=== PATIENT | female | born 1965 | race Asian ===

== ENCOUNTER 2022-04-25 22:51 | Emergency (ER) | payer OTHER ==
[~2022-04-25] VITALS: Ht 149.9 cm; Wt 43.5 kg
[2022-04-25 22:55] VITALS: BP_SYST 138
--- NOTE | 2022-04-25 22:55 | NUR ---
Note undone in EDM - 04/25/22 at 2302 by [id number] Pt BIBA from home with c/o of dizziness x7 hours, BURR that subsided on arrival, and nausea. Denies pain at this time, and no signs of resp distress, even and unlabored resp. VSS.
[2022-04-25 23:22] LABS: BASOPHILS % (AUTO) 0.4 % (0.0-2.0); EOSINOPHILS % (AUTO) 0.7 % (0.0-4.0); HEMATOCRIT 37.3 % (36-48); LYMPHOCYTES % (AUTO) 15.9 % (20.5-51.5); MEAN CORPUSCULAR VOLUME 92 fL (79.0-98.0); MONOCYTES # (AUTO) 0.4 K/uL (0.0-1.0); MONOCYTES % (AUTO) 6.2 % (1.7-9.3); NEUTROPHILS # (AUTO) 4.9 K/uL (1.8-7.7); NEUTROPHILS % (AUTO) 76.8 % (40.0-70.0); PLATELET COUNT (AUTO) 232 K/uL (130-430); RED BLOOD CELL COUNT(AUTO) 4.07 MIL/uL (4.2-6.2); RED CELL DISTRIBUTION WIDTH 13.3 % (9.0-15.0); WHITE BLOOD COUNT (AUTO) 6.4 K/uL (4.8-10.8)
--- NOTE | 2022-04-25 23:50 | NUR ---
MD with patient for evaluation.
[2022-04-26] MEDS ORDERED: ONDANSETRON 4 MG ODT TAB PO ONE
[2022-04-26] MEDS ORDERED: MECLIZINE HCL 25 MG TABLET (ANITVERT) PO ONE
[2022-04-26 00:23] LABS: ALANINE AMINOTRANSFERASE 23 U/L (12-78); ALBUMIN 3.3 g/dL (3.4-4.8); ANION GAP 8 (5-15); ASPARTATE AMINOTRANSFERASE 25 U/L (10-37); CALCIUM 8.8 mg/dL (8.4-11.0); CHLORIDE 102 mmol/L (98-107); CREATININE 0.83 mg/dL (0.55-1.30); GLUCOSE 115 mg/dL (70-99); POTASSIUM 3.4 mmol/L (3.5-5.1); SODIUM SERUM 137 mmol/L (136-145); TOTAL BILIRUBIN 0.6 mg/dL (0.0-1.0); UREA NITROGEN, BLOOD 12 mg/dL (8-21)
[2022-04-26 00:34] LABS: PROTHROMBIN TIME 10.2 SECS (9.5-12.5)
[2022-04-26 00:39] LABS: GFR AFRICAN AMERICAN 90 mL/min (>90)
--- NOTE | 2022-04-26 00:50 | NUR ---
Pt report leg cramping and pain. made aware. No new orders at this time.
[2022-04-26] MEDS ORDERED: NACL 0.9% 1,000 ML IV ONE (01:15)
[2022-04-26] MEDS ORDERED: POTASSIUM CHLORIDE 20 MEQ TAB.PRT.SR PO ONE (01:15)
--- NOTE | 2022-04-26 01:28 | NUR ---
Pt moved to ED bed 01 via gurney. 22G initated in the LAC using sterile technique.
[2022-04-26] MEDS ORDERED: MAGNESIUM SULFATE 50 ML IV ONE (01:30)
[2022-04-26] MEDS ORDERED: POTASSIUM CHLORIDE 20 MEQ/PKT PACKET PO ONE (02:00)
--- NOTE | 2022-04-26 02:16 | NUR ---
COVID SWAB SENT TO LAB.
[2022-04-26 02:29] LABS: BILIRUBIN,URINE NEGATIVE (NEGATIVE); BLOOD, URINE NEGATIVE (NEGATIVE); CLARITY/URINE SL CLOUDY (CLEAR); COLOR,URINE YELLOW (YELLOW); GLUCOSE,URINE NEGATIVE (NEGATIVE); KETONES,URINE 1+ (NEGATIVE); LEUKOCYTE ESTERASE ,URINE NEGATIVE (NEGATIVE); NITRITE, URINE NEGATIVE (NEGATIVE); PROTEIN URINE TRACE (NEGATIVE); UROBILINOGEN,URINE 0.2 (0.2-1.0)
[2022-04-26 02:53] LABS: BACTERIA,URINE FEW /HPF (None Seen); RBC,URINE 0-3 /HPF (0-3); YEAST,URINE Few /HPF (None Seen)
[2022-04-26] MEDS ORDERED: LORazepam 2 MG/ML VIAL IVP ONE (03:00)
[2022-04-26 03:10] LABS: BARBITURATE, URINE NEGATIVE (NEG <=200); BENZODIAZEPINE, URINE NEGATIVE (NEG <=150); CANNABINOID, URINE NEGATIVE (NEG <=50); COCAINE, URINE NEGATIVE (NEG <=150); METHAMPHETAMINES SCREEN,URINE NEGATIVE (NEG <=500); URINE AMPHETAMINE NEGATIVE (NEG <=500); URINE METHADONE NEGATIVE (NEG <=200)
[2022-04-26 03:11] LABS: OPIATE, URINE NEGATIVE (NEG <=100); PHENCYCLIDINE SCREEN,URINE NEGATIVE (NEG <=25); UR TRICYCLIC ANTIDEPRESSANTS NEGATIVE (NEG <=300); URINE OXYCODONE SCREEN NEGATIVE (NEG <=100); URINE PROPOXYPHENE SCREEN NEGATIVE (NEG <=300)
[2022-04-26 04:20] VITALS: BP_SYST 96
== END 2022-04-26 04:25 | disposition short-term general hospital (02) ==
LOC: SED 22:51
DX: R42 Dizziness and giddiness (principal); R11.0 Nausea; Z79.899 Other long term (current) drug therapy; Z20.822 Contact with and (suspected) exposure to COVID-19
CPT/HCPCS: 99285; 87426; 80307; 80053; 83880; 85025; 85610; 85730; 84484; 36415; 83605; 81000; 96365; 70450; 71045; 96366; 96375; 76376; J8597; Q0162; J2060; J3475